=== PATIENT | female | born 1940 | race Caucasian/White ===

== ENCOUNTER 2017-09-13 18:14 | Emergency (ER) | payer MEDICARE, OTHER ==
--- NOTE | 2017-09-13 19:07 | UC ---
Ear Complaint HPI - HPI Summary HPI Summary: 77 year old male presents with right ear pain/dullness. - History of Current Complaint Stated Complaint: RIGHT EAR PAIN Time Seen by Provider: 09/13/17 19:06 Hx Obtained From: Patient Onset/Duration: Sudden Onset Severity Initially: Moderate Severity Currently: Moderate Pain Scale Used: 0-10 Numeric - 5 - Allergies/Home Medications Allergies/Adverse Reactions: Allergies Allergy/AdvReac Type Severity Reaction Status Date / Time Penicillins Allergy Unknown Verified 09/13/17 19:28 Reaction Details Home Medications: Home Medications Acetaminophen [Acetaminophen Extra Stren] 1,000 mg PO ONCE 09/13/17 [History Confirmed 09/13/17] [id number]-Tc (Otic) [Neomycin/Polymyxin/Hydroc 1 %] 4 drop QID [History Confirmed 09/13/17] PMH/Surg Hx/FS Hx/Imm Hx Previously Healthy: Yes Review of Systems Constitutional: Negative Skin: Negative Eyes: Negative ENT: Ear Ache Respiratory: Negative Cardiovascular: Negative Gastrointestinal: Negative Genitourinary: Negative Motor: Negative Neurovascular: Negative Musculoskeletal: Negative Neurological: Negative Psychological: Negative All Other Systems Reviewed And Are Negative: Yes Physical Exam Triage Information Reviewed: Yes Vital Signs Reviewed: Yes Eye Exam: Normal ENT: Positive: Nasal congestion, Nasal drainage, Sinus tenderness Dental Exam: Normal Neck exam: Normal Neck: Positive: 1 Respiratory Exam: Normal Cardiovascular Exam: Normal Abdominal Exam: Normal Musculoskeletal Exam: Normal Neurological Exam: Normal Psychological Exam: Normal Skin Exam: Normal Ear Complaint Course/Dx - Differential Dx/Diagnosis Provider Diagnoses: right ear pain. riight ear dullness Discharge - Discharge Plan Condition: Stable Disposition: HOME Prescriptions: Azithromyxin JOHN (NF) [Z-John (Zithromax) 250 mg tabs #6] 2 tab PO .TODAY, THEN 1 DAILY #6 tab Methylprednisolone [Medrol Dosepak 4 MG*] 4 mg PO .SEE JOHN INSTRUCTION #21 tab Patient Education Materials: Sinusitis (ED), Otitis Externa (ED) Referrals: Sukhwinder Kam MD [Medical Doctor] -
== END 2017-09-13 19:29 | disposition home or self-care (01) ==
LOC: UCCORT 18:14
DX: H92.01 Otalgia, right ear (principal); Z88.0 Allergy status to penicillin
CPT/HCPCS: 99202; G0463

== ENCOUNTER 2017-12-30 16:38 | Emergency (ER) | payer MEDICARE, OTHER ==
[2017-12-30 16:58] VITALS: BP 126/58
[2017-12-30] MEDS ORDERED: Albuterol 2.5 MG/3 ML NEB.SOL* (0.083%) INH ONE (17:20)
--- NOTE | 2017-12-30 17:26 | UC ---
Respiratory Complaint HPI - HPI Summary HPI Summary: pt states she has had a cold for a month. she decribes the cold as sneezing, nasal congestion and cough. the cough is now congested. pt admits to wheezing but denies sob, cp, and fever. she is a smoker but denies hx of lung disease. 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 pt denies hx cardiac disease. - History of Current Complaint Chief Complaint: UCRespiratory Stated Complaint: CONGESTION, RESPIRATORY Time Seen by Provider: 12/30/17 16:49 Hx Obtained From: Patient ?: No Onset/Duration: Gradual Onset Pain Intensity: 0 Aggravating Factors: Nothing Alleviating Factors: Nothing Associated Signs And Symptoms: Positive: Nasal Congestion. Negative: Dyspnea, Fever, Chills, Calf Swelling - Risk Factors Cardiac Risk Factors: Smoking Pseudomonas Risk Factors: Negative - Allergies/Home Medications Allergies/Adverse Reactions: Allergies Allergy/AdvReac Type Severity Reaction Status Date / Time Penicillins Allergy Hives Verified 12/30/17 16:50 Home Medications: Home Medications Oral Diabetic Med 1 tab DAILY 12/30/17 [History] PMH/Surg Hx/FS Hx/Imm Hx Endocrine History: Diabetes - Surgical History Surgical History: Yes Surgery Procedure, Year, and Place: hysterectomy - Social History Occupation: Retired Alcohol Use: None Substance Use Type: None Smoking Status (MU): Light Every Day Tobacco Smoker Type: Cigarettes Amount Used/How Often: 1/2 ppd - Immunization History Most Recent Influenza Vaccination: none Review of Systems Constitutional: Negative Skin: Negative Eyes: Negative ENT: Sinus Congestion, Other - R ear chronic infection Respiratory: Cough Cardiovascular: Negative Gastrointestinal: Negative Genitourinary: Negative Motor: Negative Neurovascular: Negative Musculoskeletal: Negative Neurological: Negative Psychological: Negative Is Patient Immunocompromised?: No All Other Systems Reviewed And Are Negative: Yes Physical Exam Triage Information Reviewed: Yes Appearance: Well-Appearing Vital Signs: Initial Vital Signs Temp 97.4 F 12/30/17 16:52 Pulse 61 12/30/17 16:52 Resp 18 12/30/17 16:52 BP 126/58 12/30/17 16:52 Pulse Ox 95 12/30/17 16:52 Vital Signs Reviewed: Yes Eyes: Positive: Conjunctiva Clear, Other: - s/p cataract surgery ENT: Positive: Pharynx normal, Nasal congestion, Other - hearing aides removed and TM's mas/canals clear. Aides returned to ears.. Negative: Nasal drainage, Sinus tenderness Neck: Positive: Supple, Nontender, No Lymphadenopathy Respiratory: Positive: No respiratory distress, No accessory muscle use, Decreased breath sounds, Rhonchi, Wheezing Cardiovascular: Positive: RRR, No Murmur, Other: - no jvd or leg edema Abdomen Description: Positive: Nontender, No Organomegaly, Soft Bowel Sounds: Positive: Present Musculoskeletal: Positive: No Edema Neurological: Positive: Alert Psychological: Positive: Age Appropriate Behavior Skin Exam: Normal UC Diagnostic Evaluation - Laboratory O2 Sat by Pulse Oximetry: 95 - Radiology Xray Interpretation: No Acute Changes Radiology Interpretation Completed By: Radiologist Respiratory Course/Dx - Course Course Of Treatment: much improved aeration with less wheezing and rhonchi post tx. cxr=nad. pt shares that she has a nebulizer at home thus i will prescribe albuterol, prenisone and cover for presumptive bacterial infection. no concern for cardiac pathology. need for close f/u pcp advised. - Differential Dx/Diagnosis Provider Diagnoses: Bronchospasm, cough Discharge - Discharge Plan Condition: Improved Disposition: HOME Prescriptions: Albuterol 2.5MG/3ML (0.083%)* [Ventolin 2.5 MG/3 ML NEB.BHAVESH*] 2.5 mg INH Q6H 14 Days #1 box Azithromycin TAB* [Zithromax TAB (Z-JOHN) 250 mg #6 tabs] 2 tab PO .TODAY, THEN 1 DAILY #1 john predniSONE [Prednisone] 40 mg PO DAILY 5 Days #10 tablet Patient Education Materials: Bronchospasm (ED), Acute Cough (ED) Referrals: Bettye Haas MD [Primary Care Provider] - 5 Days
--- NOTE | 2017-12-30 17:46 | RAD ---
INDICATION: Cough. Wheezing. COMPARISON: None TECHNIQUE: PA and lateral dual-energy views were obtained. FINDINGS: Bones/Soft Tissues: There are no acute bony findings. Cardiomediastinal: The cardiomediastinal silhouette is normal. Lungs: There are no focal infiltrates. There is mild chronic appearing interstitial changes. Pleura: There are no pleural effusions. Other: None IMPRESSION: NO ACTIVE DISEASE
== END 2017-12-30 18:02 | disposition home or self-care (01) ==
LOC: UCCORT 16:38
DX: J98.01 Acute bronchospasm (principal); R05 Cough; F17.210 Nicotine dependence, cigarettes, uncomplicated; E11.9 Type 2 diabetes mellitus without complications; Z79.84 Long term (current) use of oral hypoglycemic drugs
CPT/HCPCS: 71046; 99212; G0463

== ENCOUNTER 2018-01-02 08:26 | Emergency (ER) | payer MEDICARE, OTHER ==
[2018-01-02 09:55] VITALS: BP 148/69
--- NOTE | 2018-01-02 10:50 | UC ---
Respiratory Complaint HPI - HPI Summary HPI Summary: This is a 77 yo female with h/o smoking who presents with c/o cough and SOB for several weeks. She was seen 12/30, CXR was neg. She was Rx'd albuterol neb, prednisone, and azithromycin. She has been unable to fill her albuterol for insurance related issues. She has been taking the azithromycin and prednisone and Rx'd. She has not been using her Symbicort regularly. She notes no improvement or worsening sx's since her last visit. - History of Current Complaint Chief Complaint: UCRespiratory Stated Complaint: COUGH RE-CHECK Pain Intensity: 0 - Allergies/Home Medications Allergies/Adverse Reactions: Allergies Allergy/AdvReac Type Severity Reaction Status Date / Time Penicillins Allergy Hives Verified 01/02/18 09:39 Home Medications: Home Medications Albuterol 2.5MG/3ML (0.083%)* [Ventolin 2.5 MG/3 ML NEB.BHAVESH*] 2.5 mg INH Q6H [History Confirmed 01/02/18] guaiFENesin ER TAB [Mucinex*] 600 mg PO BID 01/02/18 [History Confirmed 01/02/18 ] PMH/Surg Hx/FS Hx/Imm Hx Previously Healthy: No - COPD Respiratory History: COPD - Surgical History Surgical History: Yes Surgery Procedure, Year, and Place: hysterectomy - Family History Known Family History: Positive: None - Social History Alcohol Use: None Substance Use Type: None Smoking Status (MU): Light Every Day Tobacco Smoker Type: Cigarettes Amount Used/How Often: 1/2 ppd - Immunization History Most Recent Influenza Vaccination: none Review of Systems Constitutional: Negative Skin: Negative Eyes: Negative ENT: Negative Respiratory: Shortness Of Breath, Cough Cardiovascular: Negative Gastrointestinal: Negative Genitourinary: Negative Motor: Negative Neurovascular: Negative Musculoskeletal: Negative Neurological: Negative Psychological: Negative Is Patient Immunocompromised?: No All Other Systems Reviewed And Are Negative: Yes Physical Exam Triage Information Reviewed: Yes Appearance: Ill-Appearing - chronically Vital Signs: Initial Vital Signs Temp 97.8 F 01/02/18 09:43 Pulse 60 01/02/18 09:43 Resp 20 01/02/18 09:43 BP 148/69 01/02/18 09:43 Pulse Ox 98 01/02/18 09:43 Vital Signs Reviewed: Yes ENT: Positive: Normal ENT inspection Neck: Positive: Supple, Nontender, No Lymphadenopathy Respiratory: Positive: Rhonchi, Wheezing Cardiovascular: Positive: RRR, No Murmur Abdominal Exam: Normal Musculoskeletal Exam: Normal Neurological Exam: Normal Psychological Exam: Normal Skin Exam: Normal UC Diagnostic Evaluation - Laboratory O2 Sat by Pulse Oximetry: 98 Respiratory Course/Dx - Course Course Of Treatment: This is a 77 yo female with h/o COPD who presents with a non-resolving exacerbation. She is not hypoxic. Contacted her pharmacy and confirmed her neb will be available to fill. Lengthened her course of prednisone. CXR was not repeated as her symptoms have not worsened since being seen 3 days ago. - Differential Dx/Diagnosis Differential Diagnosis/HQI/PQRI: Exacerbation Of COPD, Influenza, Lower Resp Infection Provider Diagnoses: COPD exacerbation Discharge - Discharge Plan Condition: Stable Disposition: HOME Prescriptions: predniSONE TAB* [Deltasone TAB*] 20 mg PO SEE INSTRUCTIONS #8 tab Patient Education Materials: COPD (Chronic Obstructive Pulmonary Disease) (ED) Referrals: Bettye Haas MD [Primary Care Provider] - 1 Week (Please follow up with PCP) Additional Instructions: Instructions: 1. Please use albuterol nebulizer regularly 2. Start new prednisone prescription after you complete your current prescription 3. Please use your Symbicort twice daily for at least the next month 4. Follow up with your PCP regarding your symptoms
== END 2018-01-02 10:42 | disposition home or self-care (01) ==
LOC: UCCORT 08:26
DX: J44.1 Chronic obstructive pulmonary disease with (acute) exacerbation (principal); F17.210 Nicotine dependence, cigarettes, uncomplicated
CPT/HCPCS: 99212; G0463

== ENCOUNTER 2019-05-25 08:55 | Emergency (ER) | payer MEDICARE, OTHER ==
[2019-05-25 09:38] VITALS: BP 107/46
--- NOTE | 2019-05-25 10:33 | UC ---
Minor Trauma HPI - HPI Summary HPI Summary: Pt presents with c/o right side rib pain and right side hip and coccyx pain s/ p falling from standing 3 days ago. Pt states she was running to get inside from the rain and slipped and fell. - History of Current Complaint Chief Complaint: UCUpperExtremity Stated Complaint: S/P FALL- RIB/TAILBONE INJURY Time Seen by Provider: 05/25/19 09:56 Hx Obtained From: Patient ?: No Onset/Duration: Sudden Onset, Lasting Days, Still Present Onset Of Pain: Immediate Severity Initially: Moderate Severity Currently: Moderate Pain Intensity: 8 Mechanism Of Injury: Fall From A Standing Position Aggravating Factor(s): Coughing, Deep Breaths, Movement Alleviating Factor(s): Rest - Risk Factors Penetrating Injury Risk Factors: Negative Compartment Syndrome Risk Factors: Pain - Allergies/Home Medications Allergies/Adverse Reactions: Allergies Allergy/AdvReac Type Severity Reaction Status Date / Time Penicillins Allergy Hives Verified 05/25/19 09:29 Home Medications: Home Medications Ascorbic Acid TAB* [Vitamin C TAB*] 500 mg PO DAILY 05/25/19 [History Confirmed 05/25/19] Aspirin EC TAB* [Ecotrin EC Low Dose 81 MG*] 81 mg PO DAILY 05/25/19 [History Confirmed 05/25/19] Atorvastatin* [Lipitor*] 40 mg PO QPM 05/25/19 [History Confirmed 05/25/19] Cholecalciferol TAB* [Vitamin D TAB*] 1,000 unit PO DAILY 05/25/19 [History Confirmed 05/25/19] Ibuprofen TAB* [Advil TAB*] 800 mg PO Q8H PRN 05/25/19 [History Confirmed ] PARoxetine HCL TAB* [Paxil TAB*] 20 mg PO DAILY 05/25/19 [History Confirmed ] Pioglitazone TAB* [Actos TAB*] 30 mg PO DAILY 05/25/19 [History Confirmed ] traZODone TAB* [Desyrel TAB*] 100 mg PO BEDTIME 05/25/19 [History Confirmed ] PMH/Surg Hx/FS Hx/Imm Hx Previously Healthy: Yes Endocrine History: Diabetes Psychological History: Anxiety - Surgical History Surgical History: Yes Surgery Procedure, Year, and Place: hysterectomy - Family History Known Family History: Positive: Cardiac Disease - Social History Occupation: Retired Lives: With Family Alcohol Use: None Substance Use Type: None Smoking Status (MU): Light Every Day Tobacco Smoker Type: Cigarettes Amount Used/How Often: ~1/10 PPD Length of Time of Smoking/Using Tobacco: Since Age 20 Have You Smoked in the Last Year: Yes - Immunization History Most Recent Influenza Vaccination: none Review of Systems All Other Systems Reviewed And Are Negative: Yes Constitutional: Positive: Negative Skin: Positive: Negative Eyes: Positive: Negative ENT: Positive: Negative Respiratory: Positive: Negative Cardiovascular: Positive: Negative Gastrointestinal: Positive: Negative Genitourinary: Positive: Negative Motor: Positive: Decreased ROM - chest/trunk Neurovascular: Positive: Negative Musculoskeletal: Positive: Arthralgia, Decreased ROM, Myalgia Neurological: Positive: Negative Psychological: Positive: Negative Is Patient Immunocompromised?: No Physical Exam Triage Information Reviewed: Yes Appearance: Pain Distress Vital Signs: Initial Vital Signs Temp 97.8 F 05/25/19 09:25 Pulse 60 05/25/19 09:25 Resp 18 05/25/19 09:25 BP 107/46 05/25/19 09:25 Pulse Ox 99 05/25/19 09:25 Vital Signs Reviewed: Yes Eye Exam: Normal ENT Exam: Normal ENT: Positive: Hearing grossly normal Neck exam: Normal Respiratory Exam: Normal Respiratory: Positive: Normal breath sounds, No respiratory distress, Other: - no palpable crepitus Cardiovascular Exam: Normal Musculoskeletal: Positive: Strength Intact, ROM Intact - right anterior upper chest wall, Other: - painful, right anterior Psychological Exam: Normal Skin Exam: Normal Diagnostics - Radiology No standard instances Radiology Interpretation Completed By: Radiologist - IMPRESSION: FRACTURE OF THE RIGHT FOURTH RIB. IMPRESSION: No fracture of the sacrum or coccyx is noted. Minor Trauma Course/Dx - Differential Dx/Diagnosis Differential Diagnosis/HQI/PQRI: Fracture Provider Diagnosis: Fracture of rib of right side, Contusion of right hip Discharge - Sign-Out/Discharge Documenting (check all that apply): Patient Departure All imaging exams completed and their final reports reviewed: Yes - Discharge Plan Condition: Stable Disposition: HOME Patient Education Materials: Rib Fracture (ED) Referrals: Bakari Lee MD [Medical Doctor] - Bettye Haas MD [Primary Care Provider] - If Needed Additional Instructions: Please follow up with your PCP as needed. We recommend that you follow up with an orthopedic provider. - Billing Disposition and Condition Condition: STABLE Disposition: Home
== END 2019-05-25 10:41 | disposition home or self-care (01) ==
LOC: UCCORT 08:55
DX: S22.31XA Fracture of one rib, right side, initial encounter for closed fracture (principal); S70.01XA Contusion of right hip, initial encounter; W01.0XXA Fall on same level from slipping, tripping and stumbling without subsequent striking against object, initial encounter; Y93.02 Activity, running; Y92.9 Unspecified place or not applicable; E11.9 Type 2 diabetes mellitus without complications; Z79.84 Long term (current) use of oral hypoglycemic drugs; F41.9 Anxiety disorder, unspecified; F17.210 Nicotine dependence, cigarettes, uncomplicated
CPT/HCPCS: 72220; 99211; G0463

== ENCOUNTER 2022-05-24 20:30 | Observation (INO) ==
[2022-05-24] MEDS ORDERED: NS 0.9% 1000 ml BAG 1,000 ML IV SCH (22:45)
[2022-05-25 01:30] LABS: eGFR CKD-EPI 67.3 (>60)
[2022-05-25] MEDS: Enoxaparin 40 MG/0.4 ML SYR SUBCUT SCH (06:10)
[2022-05-25 06:21] LABS: ABS Basophils 0.1 10^3/ul (0-0.2); ABS Eosinophils 0.1 10^3/ul (0-0.6); ABS Lymphocytes 2.2 10^3/ul (1.0-4.8); ABS Monocytes 0.5 10^3/ul (0-0.8); ABS Neutrophils 3.6 10^3/ul (1.5-7.7); Eosinophil % 2.1 %; Hematocrit 41 % (35-47); Hemoglobin 13.9 g/dL (12.0-16.0); Mean Corpuscular HGB Conc 34 g/dL (31-36); Mean Corpuscular Hemoglobin 29 pg (27-31); Mean Corpuscular Volume 85 fL (80-97); Mean Platelet Volume 8.5 fL (7.4-10.4); Platelet Count 137 10^3/uL (150-450); Red Blood Count 4.75 10^6 /uL (3.70-4.87); Red Cell Distribution Width 13 % (10-15); White Blood Count 6.4 10^3/uL (3.5-10.8)
[2022-05-25 06:40] LABS: HDL Cholesterol 39.3 mg/dL; eGFR CKD-EPI 64.6 (>60)
[2022-05-25] MEDS ORDERED: Flumazenil 0.5 mg/5 ml 0.1 MG/ML 5 ml VIAL ONE (08:07)
[2022-05-25] MEDS ORDERED: Midazolam 5 mg/5 ml VIAL 1 mg/ml 5 ml VIAL (5 mg) ONE (08:07)
[2022-05-25] MEDS ORDERED: Naloxone 0.4 mg VIAL 0.4 mg/ml 1 ml VIAL ONE (08:07)
[2022-05-25] MEDS ORDERED: fentaNYL 100 mcg/2 ml 50 MCG/ML VIAL ONE (08:07)
[2022-05-26] MEDS: Enoxaparin 40 MG/0.4 ML SYR SUBCUT SCH (05:08)
[2022-05-26 12:10] VITALS: BP 124/44
== END 2022-05-26 13:51 | disposition home or self-care (01) ==
LOC: EDHOLD 20:30 → ED 20:30 → SUATTDRO 22:21 → MEDTELE 23:29
PROVIDERS: ADMIT Internal Medicine; ATTEND Hospitalist